=== PATIENT | male | born 1945 | race Caucasian/White ===

== ENCOUNTER 2019-11-01 13:42 | Inpatient (IN) | payer MEDICARE, OTHER ==
[~2019-11-01] VITALS: Ht 167.6 cm; Wt 83.9 kg
[2019-11-01 15:47] LABS: BASOPHILS # (AUTO) 0.1 X10'3 (0-0.2); BASOPHILS % (AUTO) 0.4 % (0-1); EOSINOPHILS # (AUTO) 0.1 X10'3 (0-0.9); EOSINOPHILS % (AUTO) 0.9 % (0-6); HEMATOCRIT 44.6 % (42.0-52.0); HEMOGLOBIN 14.7 g/dl (14.0-17.9); LYMPHOCYTES # (AUTO) 1.3 X10'3 (1.1-4.8); LYMPHOCYTES % (AUTO) 10.3 % (21-51); MEAN CORPUSCULAR HEMOGLOBIN 28.5 PG (27.0-31.0); MEAN CORPUSCULAR HGB CONC 32.9 g/dL (33.0-36.5); MEAN CORPUSCULAR VOLUME 86.7 FL (78-98); MEAN PLATELET VOLUME 8.5 FL (7.4-10.4); MONOCYTES % (AUTO) 7.8 % (2-12); NEUTROPHILS # (AUTO) 10.4 X10'3 (1.8-7.7); NEUTROPHILS % (AUTO) 80.6 % (42-75); PLATELET COUNT 123 X10'3 (140-440); RED BLOOD COUNT 5.15 X10'6 (4.70-6.10); RED CELL DISTRIBUTION WIDTH 14.1 % (11.5-14.5)
[2019-11-01 15:56] LABS: ALANINE AMINOTRANSFERASE 33 U/L (12-78); ALBUMIN 2.8 G/DL (3.4-5.0); ALBUMIN/GLOBULIN RATIO 0.7 (1.1-1.5); ALKALINE PHOSPHATASE 98 IU/L (46-116); ANION GAP 9 (8-16); ASPARTATE AMINO TRANSFERASE 21 U/L (10-37); BLOOD UREA NITROGEN 24 MG/DL (7-18); BUN/CREATININE RATIO 16.3 (5.4-32.0); CALCIUM 8.7 MG/DL (8.5-10.1); CHLORIDE 105 MMOL/L (99-107); CREATININE 1.47 MG/DL (0.60-1.10); GLUCOSE 140 MG/DL (70-104); POTASSIUM 3.7 MMOL/L (3.5-5.1); SODIUM 142 MMOL/L (135-145); TOTAL PROTEIN 6.6 G/DL (6.4-8.2); eGFR 47 ML/MIN
[2019-11-01] MEDS ORDERED: DOXY100C77 PO (16:37)
[2019-11-01] MEDS ORDERED: ATOR40TA PO (17:22)
[2019-11-01] MEDS ORDERED: LISI1TAB29 PO (17:22)
[2019-11-01] MEDS ORDERED: DICL100G15 TOP (17:22)
[2019-11-01] MEDS ORDERED: AMLO5TAB PO (17:22)
[2019-11-01] MEDS ORDERED: levoFLOXACIN-Levaquin 500mg/D5 100 ML IV ONE (17:25)
[2019-11-01] MEDS ORDERED: bisacodyl 10mg suppository rectal RC PRN (18:35)
[2019-11-01] MEDS ORDERED: potassium Cl 20 mEq SR tablet PO PRN ×2 (18:35)
[2019-11-01] MEDS ORDERED: potassium CL 10mEq/100ml bag 100 ML IV PRN ×2 (18:35)
[2019-11-01] MEDS ORDERED: acetaminophen 325mg tablet PO PRN ×2 (18:35)
[2019-11-01] MEDS ORDERED: mag hydrox/Alum hydrox/simeth 30ml oral suspension PO PRN (18:35)
[2019-11-01] MEDS ORDERED: acetaminophen 650mg rectal suppository RC PRN (18:35)
[2019-11-01] MEDS ORDERED: HYDROcodone/acetaminophen 5mg/325mg tablet PO PRN (18:35)
[2019-11-01] MEDS ORDERED: diphenhydrAMINE 25mg capsule PO PRN (18:35)
[2019-11-01] MEDS ORDERED: ondansetron/PF 4mg/2ml inj IV PRN (18:35)
[2019-11-01] MEDS ORDERED: magnesium hydroxide 30ml (MOM) UD suspension PO PRN (18:35)
[2019-11-01] MEDS ORDERED: magnesium 2GM in 50ml NS 50 ML IV PRN (18:35)
[2019-11-01] MEDS ORDERED: magnesium 4gm in 100ml NS 100 ML IV PRN (18:35)
[2019-11-01] MEDS ORDERED: ipratropium/albuterol 3ml nebule NEB PRN (18:35)
[2019-11-01] MEDS: normal saline 1000ml 1,000 ML IV SCH (18:50)
[2019-11-01 19:08] LABS: HEMOGLOBIN A1C 6.8 % (4.5-6.2)
[2019-11-01] MEDS ORDERED: iohexol 350MG/ML 100ml bottle IV ONE (19:34)
[2019-11-01] MEDS: ipratropium/albuterol 3ml nebule NEB SCH (20:00)
[2019-11-01] MEDS: K and/or MAG REPLACEMENT MC SCH (20:00)
[2019-11-01] MEDS: heparin, porcine 5000 units/ml vial SQ SCH (20:00)
[2019-11-01 20:15] VITALS: BP 153/94
[2019-11-01] MEDS: morphine 2 MG/ML inj. syringe IV PRN (21:14)
[2019-11-01] MEDS ORDERED: heparin 10,000 units/1 ML INJ IV ONE (21:35)
[2019-11-01] MEDS ORDERED: heparin 10,000 units/1 ML INJ IV PRN (21:35)
[2019-11-01] MEDS: HYDROcodone/acetaminophen 10/325mg tab PO PRN (21:54)
[2019-11-01 22:00] VITALS: BP 139/92
[2019-11-01] MEDS: heparin 25,000 UNIT/250ml bag 250 ML IV SCH (22:02)
[2019-11-01 22:40] LABS: PARTIAL THROMBOPLASTIN TIME 29 SECONDS (22-32)
--- NOTE | 2019-11-01 22:40 | NUR ---
2014 RECEIVED PATIENT IN STABLE CONDITION TO ROOM 4011B FROM ER WITH ALL BELONGINGS. C/O MILD LEFT SIDE CHEST PAIN THAT WAS NO DIFFERENT FROM WHAT HE HAS BEEN EXPERIENCING. VSS. 2044 RECEIVED CALL FROM [facility] REGARDING CRITICAL FINDINGS ON CT SCAN. DR HANSON PAGED. 2114 PT EXPERIENCING INCREASED PAIN IN CHEST, STABBING IN NATURE AND INCREASING SOB. VITAL SIGNS REMAIN STABLE. SPO2 94% ON 2L O2 VIA NC. MORPHINE ADMINISTERED. SPOKE WITH DR. HANSON AND READ RESULTS OF CT SCAN TO HER. HEPARIN GTT ORDERED AND TRANSFER TO TELEMETRY UNIT. PTS PAIN RELIEVED WITH MORPHINE AND IS BACK TO DULL ACHE ON LEFT SIDE. HEPARIN DRIP STARTED. CLOSELY MONITORING PATIENT.
--- NOTE | 2019-11-01 22:48 | NUR ---
Patient in room ORTHO 4011. I have received report from Yajaira BUSH and had the opportunity to ask questions and assume patient care.
--- NOTE | 2019-11-01 23:30 | NUR ---
PATIENT TRANSFERRED TO ROOM 3023B WITH ALL BELONGINGS IN STABLE CONDITION. REPORT GIVEN TO SAMIR BUSH.
[2019-11-01 23:32] LABS: ALANINE AMINOTRANSFERASE 34 U/L (12-78); ALBUMIN 2.6 G/DL (3.4-5.0); ALBUMIN/GLOBULIN RATIO 0.7 (1.1-1.5); ALKALINE PHOSPHATASE 97 IU/L (46-116); ANION GAP 8 (8-16); ASPARTATE AMINO TRANSFERASE 23 U/L (10-37); BLOOD UREA NITROGEN 24 MG/DL (7-18); BUN/CREATININE RATIO 16.4 (5.4-32.0); CALCIUM 8.3 MG/DL (8.5-10.1); CHLORIDE 103 MMOL/L (99-107); CREATININE 1.46 MG/DL (0.60-1.10); GLUCOSE 224 MG/DL (70-104); POTASSIUM 3.5 MMOL/L (3.5-5.1); SODIUM 137 MMOL/L (135-145); TOTAL CARBON DIOXIDE 25.8 MMOL/L (24-32); TOTAL PROTEIN 6.3 G/DL (6.4-8.2); eGFR 47 ML/MIN
[2019-11-02] MEDS: morphine 2 MG/ML inj. syringe IV PRN ×3 (01:14→23:14)
[2019-11-02 02:00] VITALS: BP 129/84
[2019-11-02] MEDS: ipratropium/albuterol 3ml nebule NEB SCH ×4 (02:00→20:20)
[2019-11-02] MEDS: HYDROcodone/acetaminophen 10/325mg tab PO PRN ×5 (03:56→19:49)
[2019-11-02] MEDS: normal saline 1000ml 1,000 ML IV SCH ×3 (04:35→19:55)
[2019-11-02 06:11] LABS: BASOPHILS % (AUTO) 0.3 % (0-1); EOSINOPHILS # (AUTO) 0.2 X10'3 (0-0.9); EOSINOPHILS % (AUTO) 1.2 % (0-6); HEMATOCRIT 42.9 % (42.0-52.0); HEMOGLOBIN 14.3 g/dl (14.0-17.9); LYMPHOCYTES # (AUTO) 2.1 X10'3 (1.1-4.8); MEAN CORPUSCULAR HGB CONC 33.2 g/dL (33.0-36.5); MEAN CORPUSCULAR VOLUME 87.2 FL (78-98); MEAN PLATELET VOLUME 8.5 FL (7.4-10.4); MONOCYTES # (AUTO) 1.3 X10'3 (0-0.9); MONOCYTES % (AUTO) 9.4 % (2-12); NEUTROPHILS # (AUTO) 10.5 X10'3 (1.8-7.7); NEUTROPHILS % (AUTO) 74.1 % (42-75); PLATELET COUNT 103 X10'3 (140-440); RED BLOOD COUNT 4.92 X10'6 (4.70-6.10); RED CELL DISTRIBUTION WIDTH 14.4 % (11.5-14.5); WHITE BLOOD COUNT 14.2 X10'3 (4.5-11.0)
--- NOTE | 2019-11-02 06:14 | NUR ---
Problems reprioritized. Patient report given, questions answered & plan of care reviewed with KELSEY BUSH.
--- NOTE | 2019-11-02 06:22 | NUR ---
Patient in room PCU 3023. I have received report from Yadi BUSH and had the opportunity to ask questions and assume patient care.
[2019-11-02 06:28] LABS: ALANINE AMINOTRANSFERASE 31 U/L (12-78); ALBUMIN 2.4 G/DL (3.4-5.0); ALBUMIN/GLOBULIN RATIO 0.7 (1.1-1.5); ALKALINE PHOSPHATASE 89 IU/L (46-116); ANION GAP 6 (8-16); ASPARTATE AMINO TRANSFERASE 17 U/L (10-37); BILIRUBIN,TOTAL 1.2 MG/DL (0.1-1.0); BLOOD UREA NITROGEN 20 MG/DL (7-18); BUN/CREATININE RATIO 15.9 (5.4-32.0); CALCIUM 8.1 MG/DL (8.5-10.1); CHLORIDE 107 MMOL/L (99-107); CHOL/HDL RATIO 2.8 (0.00-4.99); CHOLESTEROL 159 MG/DL (0-200); CREATININE 1.26 MG/DL (0.60-1.10); GLUCOSE 121 MG/DL (70-104); HDL CHOLESTEROL 56 MG/DL (35-60); LDL CHOLESTEROL 97 MG/DL (50-100); MAGNESIUM 1.3 MG/DL (1.5-2.4); PHOSPHORUS 3.3 MG/DL (2.3-4.5); POTASSIUM 3.5 MMOL/L (3.5-5.1); SODIUM 139 MMOL/L (135-145); TOTAL PROTEIN 5.9 G/DL (6.4-8.2); TRIGLYCERIDES 48 MG/DL (20-135); TROPONIN I < 0.04 NG/ML (0.0-0.05); eGFR 56 ML/MIN
[2019-11-02 07:00] VITALS: BP 119/71
[2019-11-02] MEDS: HYDROchlorothiazide 25mg tablet PO SCH (07:55)
[2019-11-02] MEDS: lisinopril 20mg tablet PO SCH (07:56)
[2019-11-02] MEDS: magnesium Cl slow-release 64mg tablet PO PRN ×2 (07:57→19:50)
[2019-11-02] MEDS: amLODIPine 5mg tablet PO SCH (07:57)
[2019-11-02] MEDS: heparin, porcine 5000 units/ml vial SQ SCH (07:58)
[2019-11-02] MEDS: atorvastatin 20mg tablet PO SCH (07:58)
--- NOTE | 2019-11-02 08:04 | NUR ---
Paged PICC nurse Need PIV in 3019 for blood transfusion and PIV in 3023B, multiple failed attempts and hardstick. Thank you!
[2019-11-02] MEDS: K and/or MAG REPLACEMENT MC SCH ×2 (08:06→19:05)
[2019-11-02 08:15] LABS: CLARITY,URINE CLEAR (Clear); COLOR,URINE YELLOW (Yellow); GLUCOSE, URINE NEGATIVE (Neg); KETONES,URINE NEGATIVE (Neg); LEUKOCYTE ESTERASE ,URINE NEGATIVE (Neg); NITRITES, URINE NEGATIVE (Neg); OCCULT BLOOD,URINE NEGATIVE (Neg); PH,URINE 6.5 (4.8-8.0); PROTEIN,URINE NEGATIVE (Neg); UROBILINOGEN,URINE 0.2 E.U/dL (0.2-1.0)
[2019-11-02 08:18] LABS: UA COLLECTION TYPE CLN CATCH MIDSTREAM
--- NOTE | 2019-11-02 08:30 | NUR ---
Wero WALKER PAGER ID: [phone] MESSAGE: Christina HAMMOND. RE Ilana Harden [id number]. Lab unable to result PTT after multiple redraws, please call me. Thank you
--- NOTE | 2019-11-02 08:39 | NUR ---
PAGER ID: [phone] MESSAGE: [id number] Ilana Harden Can we D/C sub Q heparin. Pt already on heparin drip. Edna [phone]
--- NOTE | 2019-11-02 08:58 | NUR ---
Paged again regarding heparin rate/ lab ptt result issue. PAGER ID: [phone] MESSAGE: Christina HAMMOND. Ilana Hansen [id number]. Need to discuss heparin rate with you joan. Please call, thank you!
[2019-11-02] MEDS: levoFLOXACIN-Levaquin 750MG/D5 150 ML IV SCH ×2 (09:34→10:21)
[2019-11-02] MEDS ORDERED: pneumococcal 23-VAL P-sac vacc 25 mcg/0.5ml vial IMVAC ONE (10:00)
--- NOTE | 2019-11-02 10:20 | NUR ---
Spoke to Dr Brock regarding issues with lab resulting PTT and notified him that heparin gtt is still running at 1500 units. Per MD, keep heparin gtt running and he will come to see and patient and further look into patient's chart to determine medication plan and plan of care. Patient is still having shortness of breath when trying to take deep breath in and pain on left side of abdomen, but is saying it is much improved from last night. Patient on 2 L NC but titrated to 1 L and currently 95% and will continue to wean. Will order another PTT to attempt another result
--- NOTE | 2019-11-02 10:48 | NUR ---
undid the [place] administration at 1020, was meant to be reassessment.
[2019-11-02 11:00] VITALS: BP 122/60
--- NOTE | 2019-11-02 13:13 | NUR ---
PTT results still not resulting for lab, MD aware and heparin drip still continuing per MD. LAst failed PTT attempt was at 1030 per 6 hour protocol, next PTT draw/attempt will be at 1630.
[2019-11-02] MEDS: heparin 25,000 UNIT/250ml bag 250 ML IV SCH (13:42)
[2019-11-02 15:00] VITALS: BP 122/71
[2019-11-02] MEDS: apixaban 5mg tablet PO SCH ×2 (15:48→19:50)
[2019-11-02 18:00] VITALS: BP 129/80
--- NOTE | 2019-11-02 18:30 | NUR ---
Problems reprioritized. Patient report given, questions answered & plan of care reviewed with Yoko BUSH.
--- NOTE | 2019-11-02 19:16 | NUR ---
Zachery rob [id number] would like something to help with gout pain, I dont see any meds for gout on [facility]. Claims even a sheet touching feet hurts. -Yoko [phone] PAGER ID: [phone]
--- NOTE | 2019-11-02 19:40 | NUR ---
PAGER ID: [phone] MESSAGE: Zachery rob [phone] would like something to help with gout pain, no meds for gout on emar. Claims even a sheet touching feet hurts. -Yoko [phone] Addendum: 11/02/19 at 2051 by Yoko Goel RN called and said to get a uric acid level. I have entered it in the orders.
[2019-11-02] MEDS: lactobacillus rhamnosus 10,000 MMU CELLS/CAPSULE PO SCH (19:50)
--- NOTE | 2019-11-02 20:52 | NUR ---
PAGER ID: [phone] MESSAGE: Zachery Harden [id number] said took predisone TID 2 weeks ago for gout and ran out of prescription. Experiencing pain again and said the predisone helped. -Yoko [phone]
[2019-11-02 22:00] VITALS: BP 124/72
[2019-11-02] MEDS ORDERED: methylPREDNISolone sod succ 125mg/2ml vial IV ONE (22:30)
[2019-11-03] MEDS: ipratropium/albuterol 3ml nebule NEB SCH ×2 (02:00→08:00)
[2019-11-03] MEDS: HYDROcodone/acetaminophen 10/325mg tab PO PRN ×2 (03:00→07:57)
[2019-11-03 03:01] VITALS: BP 148/97
--- NOTE | 2019-11-03 04:24 | NUR ---
Patient in room U 3023. I have received report from ELEAZAR Vasquez and had the opportunity to ask questions and assume patient care. Addendum: 11/03/19 at 0425 by Yoko Goel RN Change date to 11/01 714
[2019-11-03] MEDS: morphine 2 MG/ML inj. syringe IV PRN (05:07)
[2019-11-03] MEDS: normal saline 1000ml 1,000 ML IV SCH (05:53)
[2019-11-03 05:56] LABS: BASOPHILS % (AUTO) 0.2 % (0-1); EOSINOPHILS % (AUTO) 0 % (0-6); HEMOGLOBIN 13.8 g/dl (14.0-17.9); LYMPHOCYTES # (AUTO) 0.3 X10'3 (1.1-4.8); LYMPHOCYTES % (AUTO) 3.9 % (21-51); MEAN CORPUSCULAR HEMOGLOBIN 28.8 PG (27.0-31.0); MEAN CORPUSCULAR HGB CONC 33.6 g/dL (33.0-36.5); MEAN CORPUSCULAR VOLUME 85.6 FL (78-98); MEAN PLATELET VOLUME 8.8 FL (7.4-10.4); MONOCYTES # (AUTO) 0.2 X10'3 (0-0.9); MONOCYTES % (AUTO) 1.9 % (2-12); NEUTROPHILS # (AUTO) 8.4 X10'3 (1.8-7.7); PLATELET COUNT 115 X10'3 (140-440); RED BLOOD COUNT 4.79 X10'6 (4.70-6.10); RED CELL DISTRIBUTION WIDTH 14.1 % (11.5-14.5); WHITE BLOOD COUNT 8.9 X10'3 (4.5-11.0)
[2019-11-03 06:04] LABS: ALANINE AMINOTRANSFERASE 29 U/L (12-78); ALBUMIN 2.4 G/DL (3.4-5.0); ALBUMIN/GLOBULIN RATIO 0.6 (1.1-1.5); ALKALINE PHOSPHATASE 108 IU/L (46-116); ANION GAP 10 (8-16); ASPARTATE AMINO TRANSFERASE 25 U/L (10-37); BILIRUBIN,TOTAL 0.8 MG/DL (0.1-1.0); BLOOD UREA NITROGEN 16 MG/DL (7-18); BUN/CREATININE RATIO 12.9 (5.4-32.0); CALCIUM 8.3 MG/DL (8.5-10.1); CHLORIDE 104 MMOL/L (99-107); CREATININE 1.24 MG/DL (0.60-1.10); GLUCOSE 185 MG/DL (70-104); MAGNESIUM 1.6 MG/DL (1.5-2.4); PHOSPHORUS 3.2 MG/DL (2.3-4.5); POTASSIUM 4.1 MMOL/L (3.5-5.1); SODIUM 139 MMOL/L (135-145); TOTAL CARBON DIOXIDE 24.6 MMOL/L (24-32); TOTAL PROTEIN 6.4 G/DL (6.4-8.2); eGFR 57 ML/MIN
--- NOTE | 2019-11-03 06:42 | NUR ---
Problems reprioritized. Patient report given, questions answered & plan of care reviewed with mary. man.
--- NOTE | 2019-11-03 06:53 | NUR ---
Patient in room PCU 3023. I have received report from Yoko BUSH and had the opportunity to ask questions and assume patient care.
[2019-11-03 07:00] VITALS: BP 142/83
[2019-11-03] MEDS: atorvastatin 20mg tablet PO SCH (07:56)
[2019-11-03] MEDS: lactobacillus rhamnosus 10,000 MMU CELLS/CAPSULE PO SCH (07:56)
[2019-11-03] MEDS: apixaban 5mg tablet PO SCH (07:56)
[2019-11-03] MEDS: HYDROchlorothiazide 25mg tablet PO SCH (07:57)
[2019-11-03] MEDS: amLODIPine 5mg tablet PO SCH (07:58)
[2019-11-03] MEDS: lisinopril 20mg tablet PO SCH (07:59)
[2019-11-03] MEDS: K and/or MAG REPLACEMENT MC SCH (08:03)
[2019-11-03] MEDS ORDERED: APIX5TAB3 PO ×2 (09:56)
[2019-11-03] MEDS ORDERED: LEVO750T46 PO (09:56)
[2019-11-03] MEDS ORDERED: LACT1CAP26 PO (09:56)
[2019-11-03] MEDS ORDERED: ALBU8.5H8 INH (09:56)
[2019-11-03 11:03] VITALS: BP 145/81
--- NOTE | 2019-11-03 14:59 | NUR ---
Patient stable for discharge per MD order. All discharge instructions reviewed with patient and all questions answered. New prescriptions faxed to [facility] in [place]. PIV discontinued, cannula intact. Telemetry discontinued, rn telephonic notified. All belongings sent with patient. Patient picked up in private vehicle, wheeled to lobby by staff.
[2019-11-04] MEDS ORDERED: levoFLOXACIN-Levaquin 750MG/D5 150 ML IV SCH (08:00)
== END 2019-11-03 14:46 | disposition home or self-care (01) | DRG 193 ==
LOC: ER 13:42 → ED HOLD 18:35 → ORTHO 4S 20:15 → PCU 3S 23:29
PROVIDERS: ADMIT Family Medicine; ATTEND Family Medicine
DX: J18.9 Pneumonia, unspecified organism (principal); I26.99 Other pulmonary embolism without acute cor pulmonale; N17.9 Acute kidney failure, unspecified; R09.02 Hypoxemia; E86.0 Dehydration; E78.5 Hyperlipidemia, unspecified; E78.00 Pure hypercholesterolemia, unspecified; I10 Essential (primary) hypertension; Z80.1 Family history of malignant neoplasm of trachea, bronchus and lung; Z20.828 Contact with and (suspected) exposure to other viral communicable diseases
CPT/HCPCS: 36415; 71045; 71275; 76937; 80053; 80061; 81003; 83036; 83605; 83735; 83880; 84100; 84484; 84550; 85025; 85730; 87040; 87081; 87635; 93005; 93306; 94640; 94760; 96374; 97161; 97530; 99285; G0378; J1644; J1956; J2270; J2930; J7030; Q9967

== ENCOUNTER 2022-11-22 13:41 | Emergency (ER) | payer OTHER, MEDICARE ==
[~2022-11-22] VITALS: Ht 167.6 cm; Wt 90.0 kg
[~2022-11-22 13:41] MED LIST: ALBU8.5H17 INH; AMLO5TAB PO; APIX5TAB3 PO; ATOR40TA PO; DICL100G15 TOP; LACT1CAP26 PO; LISI1TAB53 PO
[2022-11-22 14:03] VITALS: BP 157/107
[2022-11-22 14:35] LABS: BASOPHILS # (AUTO) 0.1 X10'3 (0-0.2); BASOPHILS % (AUTO) 1.1 % (0-1); EOSINOPHILS # (AUTO) 0.2 X10'3 (0-0.9); EOSINOPHILS % (AUTO) 2.8 % (0-6); HEMOGLOBIN 16.3 g/dl (14.0-17.9); LYMPHOCYTES # (AUTO) 1.8 X10'3 (1.1-4.8); LYMPHOCYTES % (AUTO) 27.9 % (21-51); MEAN CORPUSCULAR HEMOGLOBIN 28.6 PG (27.0-31.0); MEAN CORPUSCULAR HGB CONC 33.9 g/dL (33.0-36.5); MEAN CORPUSCULAR VOLUME 84.4 FL (78-98); MEAN PLATELET VOLUME 7.7 FL (7.4-10.4); MONOCYTES # (AUTO) 0.5 X10'3 (0-0.9); MONOCYTES % (AUTO) 7.8 % (2-12); NEUTROPHILS # (AUTO) 3.9 X10'3 (1.8-7.7); NEUTROPHILS % (AUTO) 60.4 % (42-75); PLATELET COUNT 183 X10'3 (140-440); RED BLOOD COUNT 5.68 X10'6 (4.70-6.10); RED CELL DISTRIBUTION WIDTH 15.3 % (11.5-14.5); WHITE BLOOD COUNT 6.5 X10'3 (4.5-11.0)
[2022-11-22 14:43] LABS: APTT 31 SECONDS (22-32)
[2022-11-22 14:45] LABS: ALANINE AMINOTRANSFERASE 25 U/L (12-78); ALBUMIN 3.6 G/DL (3.4-5.0); ALBUMIN/GLOBULIN RATIO 0.9 (1.1-1.5); ALKALINE PHOSPHATASE 96 IU/L (46-116); ANION GAP 13 (8-16); ASPARTATE AMINO TRANSFERASE 28 U/L (10-37); BILIRUBIN,TOTAL 0.7 MG/DL (0.1-1.0); BLOOD UREA NITROGEN 22 MG/DL (7-18); BUN/CREATININE RATIO 16.4 (10.0-20.0); CALCIUM 9.1 MG/DL (8.5-10.1); CHLORIDE 105 MMOL/L (99-107); CREATININE 1.34 MG/DL (0.60-1.10); GLUCOSE 121 MG/DL (70-104); SODIUM 143 MMOL/L (135-145); TOTAL CARBON DIOXIDE 24.7 MMOL/L (24-32); TOTAL PROTEIN 7.5 G/DL (6.4-8.2); eGFR 52 ML/MIN
[2022-11-22] MEDS ORDERED: LIDO700A47 TP (15:01)
[2022-11-22 15:11] LABS: POTASSIUM 2.9 MMOL/L (3.5-5.1)
[2022-11-22] MEDS ORDERED: POTASSIUM BICARB 20meq eff tab 20 MEQ TABLET.EFF PO STA (15:11)
== END 2022-11-22 15:37 | disposition home or self-care (01) ==
LOC: ER 13:41
DX: S20.212A Contusion of left front wall of thorax, initial encounter (principal); S30.1XXA Contusion of abdominal wall, initial encounter; M25.561 Pain in right knee; M25.562 Pain in left knee; E78.00 Pure hypercholesterolemia, unspecified; I10 Essential (primary) hypertension; Z86.711 Personal history of pulmonary embolism; Z79.01 Long term (current) use of anticoagulants; Z79.899 Other long term (current) drug therapy; V87.7XXA Person injured in collision between other specified motor vehicles (traffic), initial encounter; Y93.89 Activity, other specified; Y92.488 Other paved roadways as the place of occurrence of the external cause; Y99.8 Other external cause status
CPT/HCPCS: 36415; 74176; 80053; 85025; 85610; 85730; 99284